=== PATIENT | female | born 1980 | race Caucasian/White ===

== ENCOUNTER 2018-10-03 12:37 | Emergency (ER) | payer OTHER ==
[~2018-10-03] VITALS: Ht 154.9 cm; Wt 46.1 kg
[2018-10-03 12:41] VITALS: BP 151/73; PULSE 93; RESP 18; Ht 154.9 cm; Wt 46.1 kg
[2018-10-03] MEDS ORDERED: OXYCODONE/ACETAMINOPHEN (5/325) TAB PO ONE (13:30)
[2018-10-03] MEDS ORDERED: CEPH-443 PO (13:50)
[2018-10-03] MEDS ORDERED: METR500T PO (13:50)
--- NOTE | 2018-10-03 14:10 | ERD ---
ER Documentation Chief Complaint Chief Complaint sponge "lost in vagina" x last night HPI 38-year-old female presents with complaint of sponge loss in the vagina last night. In addition patient states that she would like an STD panel. Patient does state there is been some discomfort in the vaginal since this morning. Patient was tried unsuccessfully to remove the sponge herself. PAtient denies any vaginal discharge, nausea, vomiting, diarrhea, dysuria, hematuria, fevers, chills. ROS All systems reviewed and are negative except as per history of present illness. Medications Home Meds Active Scripts Cephalexin* (Keflex*) 500 Mg Capsule, 500 MG PO BID for 7 Days, CAP Prov:MAURICIO PITTMAN 10/03/18 Metronidazole* (Flagyl*) 500 Mg Tablet, 500 MG PO BID for 7 Days, TAB Prov:ZAINMAURICIO 10/03/18 Allergies Allergies: Coded Allergies: No Known Allergy (Unverified , 10/03/18) PMhx/Soc History of Surgery: Yes (appi, ) Anesthesia Reaction: No Hx Neurological Disorder: No Hx Respiratory Disorders: No Hx Cardiac Disorders: No Hx Psychiatric Problems: No Hx Miscellaneous Medical Probl: No Hx Alcohol Use: Yes Hx Substance Use: No Hx Tobacco Use: Yes Smoking Status: Current every day smoker FmHx Family History: No diabetes, No coronary disease, No other Physical Exam Vitals Vital Signs Date Temp Pulse Resp B/P (MAP) Pulse Ox O2 O2 Flow FiO2 Time Delivery Rate 10/03/18 99.3 93 18 151/73 98 12:41 (99) Physical Exam Const: No acute distress Head: Atraumatic Eyes: Normal Conjunctiva ENT: Normal External Ears, Nose and Mouth. Neck: Full range of motion. No meningismus. Resp: Clear to auscultation bilaterally Cardio: Regular rate and rhythm, no murmurs Abd: Soft, non tender, non distended. Normal bowel sounds Skin: No petechiae or rashes Back: No midline or flank tenderness Ext: No cyanosis, or edema Neur: Awake and alert Psych: Normal Mood and Affect pelvic Exam: Grain Grader present Abdomen: Nontender External Genitalia: Normal Skin Speculum: Normal vaginal mucosa, normal cervical discharge. Sponge visualized and were successfully removed without complication. There is no trauma to the vaginal wall noted a retained foreign bodies. There was positive fishy odor. Bimanual: No adnexal masses or tenderness, No CMT Results 24 hrs Current Medications Medications Dose Sig/Jeremy Start Time Status Last (Trade) Ordered Route PRN Stop Time Admin Dose Reason Admin Oxycodone/ 1 tab ONCE ONCE 10/03/18 DC 10/03/18 Acetaminophen PO 13:30 14:03 (Percocet 10/03/18 13:31 (5/ 325)) Procedures/MDM MDM: Patient's presentation is consistent with a retained foreign body in the vagina. Sponge was successfully removed without complications. Patient was reexamined for any remnants of material or retained foreign bodies and none were seen. There was fishy odor noticed in the pelvic exams the patient will be treated clinically with metronidazole for BV. Also, in order to prevent infection secondary to retained foreign body patient was placed on Keflex. To note, nurses told me the patient refused infectious disease panel because just wanted to go home. After splint was removed patient denied any pelvic pain, vaginal pain, or any other concerning symptoms. I have low suspicion for infection, PID, retained foreign body, or any other emergent condition. At this time, patient is stable for discharge and outpatient management. I have instructed the patient to follow-up with his/her primary care physician in 1-2 days. I have discussed with the patient the possibility of needing to see a specialist for further workup and imaging studies if symptoms persist. I have instructed the patient to promptly return to the ER for any new or worsening symptoms including but not limited to increased pain, fever, nausea, vomiting, weakness or LOC. The patient and/or family expressed understanding of and agreement with this plan. All questions were answered. Home care instructions were provided. DISCLAIMER: Inadvertent spelling and grammatical errors are likely due to EHR/dictation software use and do not reflect on the overall quality of patient care. Also, please note that the electronic time recorded on this note does not necessarily reflect the actual time of the patient encounter. Departure Diagnosis: Primary Impression: Retained foreign body Additional Impression: Bacterial vaginosis Condition: Stable Patient Instructions: Vaginal Infection: Understanding the Vaginal Environment, Vaginal Infection: Bacterial Vaginosis Referrals: COMM[facility]ITY CLINICS YOU HAVE RECEIVED A MEDICAL SCREENING EXAM AND THE RESULTS INDICATE THAT YOU DO NOT HAVE A CONDITION THAT REQUIRES URGENT TREATMENT IN THE EMERGENCY DEPARTMENT. FURTHER EVALUATION AND TREATMENT OF YOUR CONDITION CAN WAIT UNTIL YOU ARE SEEN IN YOUR DOCTORS OFFICE WITHIN THE NEXT 1-2 DAYS. IT IS YOUR RESPONSIBILITY TO MAKE AN APPOINTMENT FOR FOLOW-UP CARE. IF YOU HAVE A PRIMARY DOCTOR --you should call your primary doctor and schedule an appointment IF YOU DO NOT HAVE A PRIMARY DOCTOR YOU CAN CALL OUR PHYSICIAN REFERRAL HOTLINE AT IF YOU CAN NOT AFFORD TO SEE A PHYSICIAN YOU CAN CHOSE FROM THE FOLLOWING FORMERLY [facility] [id number] [facility] [address] [facility] [facility] [address] [facility] [address] [facility]. [facility] [address] [facility]. [facility]. [address] Additional Instructions: FOLLOW UP WITH YOUR PRIMARY CARE PHYSICIAN TOMORROW.Return to this facility if you are not improving as expected. MAURICIO PITTMAN Oct 03, 2018 14:10
== END 2018-10-03 15:07 | disposition home or self-care (01) ==
LOC: FTE 12:37
DX: N76.0 Acute vaginitis (principal); F17.210 Nicotine dependence, cigarettes, uncomplicated
CPT/HCPCS: 81025; 87591; Z7502; Z7610; 99284